=== PATIENT | female | born 1975 | race Two or more races ===

== ENCOUNTER 2017-03-24 21:21 | Emergency (ER) | payer SELFPAY ==
[~2017-03-24] VITALS: Ht 170.2 cm; Wt 86.0 kg
[2017-03-24] MEDS ORDERED: KETOROLAC 30MG/ML VIAL IV STA (22:55)
[2017-03-24] MEDS ORDERED: SODIUM CHLORIDE 0.9% 1,000 ML IV ONE (22:55)
[2017-03-24] MEDS ORDERED: METHYLPREDNISOLONE SOD SUCC 125 MG/2 ML VIAL IV ONE (23:00)
[2017-03-24 23:45] LABS: BASOPHILS % 0.7 % (0.0-2.0); EOSINOPHILS % 3.6 % (0.0-5.0); HEMATOCRIT. 33.4 % (36.0-48.0); HEMOGLOBIN. 10.9 g/dL (12.0-16.0); LYMPHOCYTES % 32.3 % (20.0-50.0); MEAN CORPUSCULAR VOLUME 82.6 fL (81.0-99.0); MEAN PLATELET VOLUME 8.2 fl (7.4-10.4); MONOCYTES % 10.2 % (2.0-8.0); NEUTROPHILS % 53.2 % (40.0-76.0); PLATELET 263 x1000/uL (130-400); RED BLOOD CELL COUNT 4.04 mill/uL (4.2-5.4); RED CELL DISTRIBUTION WIDTH 16.7 % (11.6-14.6)
[2017-03-24 23:50] LABS: CHLORIDE 108 mEq/L (98-107)
[2017-03-24 23:52] LABS: PROTHROMBIN TIME 10.7 sec
[2017-03-24 23:59] LABS: CARBON DIOXIDE 23 mEq/L (21-32)
[2017-03-25] MEDS ORDERED: LORAZEPAM 1MG TABLET PO ONE (00:30)
[2017-03-25] MEDS ORDERED: HYDROCODONE/ACETAMINOPHEN 5/325MG TABLET PO ONE (00:30)
[2017-03-25 02:10] VITALS: BP 122/80
== END 2017-03-25 02:10 | disposition home or self-care (01) ==
LOC: ER 21:21
DX: M32.9 Systemic lupus erythematosus, unspecified (principal); M19.90 Unspecified osteoarthritis, unspecified site; Z87.891 Personal history of nicotine dependence; Z90.710 Acquired absence of both cervix and uterus; Z96.649 Presence of unspecified artificial hip joint
CPT/HCPCS: 36415; 80053; 81025; 85025; 85610; 93005; 96361; 96374; 96375; 99285; J1885; J2930; J7030; Z7610